=== PATIENT | male | born 1945 | race Caucasian/White ===

== ENCOUNTER 2016-10-13 10:44 | Outpatient (CLI) | payer MEDICARE, OTHER ==
[2015-02-17 21:03] VITALS: BP 132/78
--- NOTE | 2016-10-13 14:29 | Diagnostic Imaging Report ---
ROCÍO DICKERSON [facility] [address] [facility].[address] [address] Report Submission Date: Oct 13, 2016 1:53:51 PM CDT Patient Study Name: REJI FORMAN Date: Oct 13, 2016 11:12:16 AM CDT Modality Type: CR Gender: M Description: UPPER EXTREMITY : 49 Institution: [facility] Physician: ROCÍO DICKERSON Right wrist - three views Clinical history: Pain. Palpable lump. Findings: Examination right wrist in palmar, lateral oblique views demonstrates degenerative changes with narrowing of the radiocarpal and lateral intercarpal joints. Extensive vascular calcification is demonstrated. There is no evident fracture. Impression: 1. Degenerative changes. 2. Extensive vascular calcification. Electronically signed on Oct 13, 2016 1:53:51 PM CDT by: Kojo GALVEZ
--- NOTE | 2016-10-13 14:29 | Diagnostic Imaging Report ---
ROCÍO DICKERSON [facility] [address] [facility].[address] [address] Report Submission Date: Oct 13, 2016 1:59:38 PM CDT Patient Study Name: REJI FORMAN Date: Oct 13, 2016 11:25:19 AM CDT Modality Type: US Gender: M Description: US EXT NON VASC LIMITED : 49 Institution: [facility] Physician: ROCÍO DICKERSON Ultrasound right wrist Clinical history: Palpable abnormality in the volar aspect of the wrist. Technique: Real time sonography of the right wrist is performed in transverse and longitudinal views. Color flow imaging was additionally performed. Findings: In the volar aspect of the wrist at the site of the palpable lump, there are two adjacent cystic structures with the larger measuring 1.2 x 0.8 x 1.0 cm in size. Smaller one more inferiorly measures 0.8 x 0.3 mm. These likely represent ganglion cysts. There is no internal blood flow on color flow imaging and no abnormal adjacent blood flow. Impression: 1. Cystic areas in the volar aspect of the wrist likely representing ganglion cysts. Electronically signed on Oct 13, 2016 1:59:38 PM CDT by: Kojo GALVEZ
== END 2016-10-13 10:45 ==
LOC: RAD 10:44
PROVIDERS: ATTEND Family Medicine
DX: M25.531 Pain in right wrist (principal)
CPT/HCPCS: 73110; 76882

== ENCOUNTER 2017-08-21 13:58 | Outpatient (CLI) | payer MEDICARE, OTHER ==
[2015-02-17 21:03] VITALS: BP 132/78
[2017-08-21 14:20] LABS: BASOPHILS % 0.4 (0.0-1.5); MEAN CORPUSCULAR HEMOGLOBIN 29.4 pg (28.0-34.0); MEAN CORPUSCULAR VOLUME 88.4 fl (80.0-100.0); MONOCYTES % 4.3 % (0.0-11.0); NEUTROPHILS # 6.1 # k/uL (1.4-7.7)
[2017-08-21 14:45] LABS: eGFR (African) > 60; eGFR (Non-African) > 60
== END 2017-08-21 14:00 ==
LOC: LAB 13:58
PROVIDERS: ATTEND Family Medicine
DX: M31.6 Other giant cell arteritis (principal); I10 Essential (primary) hypertension
CPT/HCPCS: 36415; 80053; 85025; 85651

== ENCOUNTER 2017-10-27 11:01 | Outpatient (CLI) | payer MEDICARE, OTHER ==
[2015-02-17 21:03] VITALS: BP 132/78
[2017-10-27 11:22] LABS: APPEARANCE,URINE Clear (CLEAR); BASOPHILS % 0.3 (0.0-1.5); COLOR,URINE Yellow (YELLOW); MEAN CORPUSCULAR HEMOGLOBIN 29.4 pg (28.0-34.0); MONOCYTES % 5.3 % (0.0-11.0); NEUTROPHILS # 4.9 # k/uL (1.4-7.7); OCCULT BLOOD,URINE Negative (NEGATIVE); UROBILINOGEN URINE 0.2 Eu (0.2-1.0)
[2017-10-27 12:18] LABS: eGFR (African) > 60; eGFR (Non-African) > 60
== END 2017-10-27 11:02 ==
LOC: LAB 11:01
PROVIDERS: ATTEND Family Medicine
DX: C61 Malignant neoplasm of prostate (principal); M13.0 Polyarthritis, unspecified; I10 Essential (primary) hypertension; R39.11 Hesitancy of micturition
CPT/HCPCS: 36415; 80053; 81002; 84153; 85025; 85651; 86038

== ENCOUNTER 2018-06-15 14:32 | Outpatient (CLI) | payer MEDICARE, OTHER ==
[2015-02-17 21:03] VITALS: BP 132/78
--- NOTE | 2018-06-15 18:39 | Diagnostic Imaging Report ---
MONICA SOLIS [facility] [address] [facility] [address] [address] Report Submission Date: Jun 15, 2018 5:27:24 PM LINK CUTTER Patient Study Name: REJI FORMAN Date: Jun 15, 2018 2:56:58 PM LINK CUTTER Modality Type: DX Gender: M Description: SHOULDER : 49 Institution: [facility] Physician: MONICA SOLIS Examination: Plain film right shoulder History: PT WAS WORKING ON A COMBINE AND A JAYLON FELL ON THE RT SHOULDER. (Hx) Comparison exams: None provided Findings: 3 views of the right shoulder demonstrates articular degenerative spurring - most pronounced involving the acromioclavicular joint. No evidence for fracture or dislocation. No soft tissue abnormality Impression: Articular degenerative changes. No fracture. If suspect soft tissue injury, consider obtaining MRI to further evaluate. Electronically signed on Jun 15, 2018 5:27:24 PM LINK CUTTER by: Chip GALVEZ
== END 2018-06-15 14:40 ==
LOC: RAD 14:32
PROVIDERS: ATTEND Physician Assistant
DX: M25.511 Pain in right shoulder (principal)
CPT/HCPCS: 73030

== ENCOUNTER 2018-08-06 09:47 | Outpatient (CLI) | payer MEDICARE, OTHER ==
[2015-02-17 21:03] VITALS: BP 132/78
--- NOTE | 2018-08-06 14:49 | Diagnostic Imaging Report ---
ROCÍO DICKERSON [facility] [address] [facility] [address] [place], [place]. 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 Findings: Ventricles and sulci are prominent. Cerebrocerebellar parenchyma demonstrates periventricular low attenuation consistent with small vessel disease. No evidence for parenchymal hemorrhage. No evidence for mass or mass effect. No midline shift. No extra axial fluid collections. Partial visualization of the paranasal sinuses, mastoid air cells, orbits, skull and scalp without gross irregularity. Falx calcifications. Impression: Advanced age related changes. No acute parenchymal process. No hemorrhage. Electronically signed on Aug 06, 2018 10:09:21 AM PAPER PRODUCTS PRINTER by: Chip GALVEZ
== END 2018-08-06 09:50 ==
LOC: RAD 09:47
PROVIDERS: ATTEND Family Medicine
DX: S00.83XA Contusion of other part of head, initial encounter (principal); W19.XXXA Unspecified fall, initial encounter; Y93.9 Activity, unspecified; Y92.9 Unspecified place or not applicable; Y99.0 Civilian activity done for income or pay
CPT/HCPCS: 70450

== ENCOUNTER 2018-12-20 15:50 | Outpatient (CLI) | payer MEDICARE, OTHER ==
[2015-02-17 21:03] VITALS: BP 132/78
--- NOTE | 2018-12-21 06:26 | Diagnostic Imaging Report ---
ROCÍO DICKERSON [facility] [address] [facility].[address] [address] Report Submission Date: Dec 20, 2018 4:35:18 PM CDT Patient Study Name: REJI FORMAN Date: Dec 20, 2018 3:59:24 PM CDT Modality Type: US Gender: M Description: : 49 Institution: [facility] Physician: ROCÍO DICKERSON Examination: Ultrasound left vein History: ACUTE LT LEG PAIN Findings: Sonographic evaluation of the left lower extremity venous system from the groin to the popliteal fossa inclusive. Normal compressibility. No luminal filling defect. Normal waveforms and response to augmentation. No popliteal region fluid collection. Impression: No evidence for deep venous thrombosis. Electronically signed on Dec 20, 2018 4:35:18 PM CDT by: Chip GALVEZ
== END 2018-12-20 15:52 ==
LOC: RAD 15:50
PROVIDERS: ATTEND Family Medicine
DX: M79.662 Pain in left lower leg (principal)
CPT/HCPCS: 93971